=== PATIENT | female | born 1975 | race Caucasian/White ===

== ENCOUNTER 2016-10-18 16:38 | Emergency (ER) | payer OTHER ==
[~2016-10-18] VITALS: Ht 160 cm; Wt 68.1 kg
[~2016-10-18 16:38] MED LIST: ADVIL200 M1 PO; BENADRYL25 MG PO; CARISOPRODOL350 MG; DICYCLOMINE HCL10 MG; DILAUDID4 MG PO; ESGIC 50-325-41 EAC1 PO; EXCEDRIN MIGRA1 EAC3 PO; FENTANYL1 EAC4 TD; KEFLEX500 MG PO; KENALOG,ARISTOC80 GM TP; LEXAPRO5 MG; MEDROL DOSEPAK4 MG PO; METHADONE10 MG PO; MOTRIN800 MG PO; NAPROSYN500 MG; NAPROXEN500 MG PO; NOHOMEMEDS; PREDNISONE20 MG PO; PROMETHAZINE HC25 M1 PO; PROPRANOLOL HCL20 MG PO; PYRIDIUM100 MG PO; TRAMADOL HCL50 MG; TYLENOL WITH C1 EACH PO; XANAX0.25 MG
[2016-10-18 17:06] LABS: HEMATOCRIT 39.8 % (36.0-46.0); MCH 31.7 PG (29.0-34.0); MCHC 35.4 G/DL (30.0-36.0); MCV 89.4 FL (83-99); MEAN PLAT.VOLUME 9.8 uM^3 (9.5-12.4); PLATELET COUNT 302 K/uL (156-360); RBC DIS.WIDTH-SD 38.4 % (39-53); RED BLOOD COUNT 4.45 M/uL (3.80-5.20); WHITE BLOOD COUNT 7.4 K/uL (4.1-10.2)
[2016-10-18 17:17] LABS: CHLORIDE 105 mEq/L (99-109)
[2016-10-18 17:18] LABS: POTASSIUM 3.2 mEq/L (3.7-5.4); SODIUM 140 mEq/L (136-147)
[2016-10-18 17:20] LABS: GLUCOSE 98 mg/dL (70-99)
[2016-10-18 17:21] LABS: ANION GAP 11 MEQ/L (2-14)
[2016-10-18 17:22] LABS: TOTAL BILIRUBIN 0.8 mg/dL (0.0-1.0)
[2016-10-18 17:23] LABS: ALKALINE PHOSPHATASE 55 IU/L (3-129)
[2016-10-18 17:24] LABS: GFR ESTIMATE (CALCULATED) > 59 mL/min/
[2016-10-18 17:25] LABS: DIRECT BILIRUBIN 0.3 mg/dL (0.0-0.3); UREA NITROGEN (BUN) 12 mg/dL (9-23)
[2016-10-18 17:27] LABS: LIPASE 138 U/L (1.0-51.0)
[2016-10-18 18:18] LABS: ADD MIUA? YES; BILIRUBIN NEGATIVE; BLOOD NEGATIVE; COLOR YELLOW ((YELLOW)); GLUCOSE (STRIP) NEGATIVE; KETONES 80; LEUKOCYTES NEGATIVE; NITRITE NEGATIVE; PROTEIN (STRIP) 100; SPECIFIC GRAVITY 1.026 (1.000-1.030); UROBILINOGEN 0.2 MG/DL (0.2-1.0)
[2016-10-18 18:33] LABS: BACTERIA RARE /HPF; EPITHELIAL CELLS 1+ /HPF; MUCUS 2+ /LPF; UCUL ADDED? NO; WHITE BLOOD CELLS 0-5 /HPF (0-5)
[2016-10-18] MEDS ORDERED: ZOFRAN4 MG PO (18:45)
[2016-10-18 19:12] VITALS: BP 101/65
== END 2016-10-18 19:14 | disposition home or self-care (01) ==
LOC: EME 16:38
PROVIDERS: Emergency Medicine
DX: R11.2 Nausea with vomiting, unspecified (principal); R19.7 Diarrhea, unspecified; E86.0 Dehydration; Z87.440 Personal history of urinary (tract) infections
CPT/HCPCS: 80048; 80076; 81003; 83690; 85027; 99281; 99285; J0780; J1200; J1885; J2405; J7030

== ENCOUNTER 2016-10-20 19:20 | Emergency (ER) | payer OTHER ==
[~2016-10-20] VITALS: Ht 160 cm; Wt 63.8 kg
[~2016-10-20 19:20] MED LIST changes: +ZOFRAN4 MG PO
[2016-10-20 20:45] LABS: HEMATOCRIT 36.1 % (36.0-46.0); MCH 31.7 PG (29.0-34.0); MCHC 34.9 G/DL (30.0-36.0); MCV 90.7 FL (83-99); RBC DIS.WIDTH-CV 12.1 % (11.8-14.6); RBC DIS.WIDTH-SD 39.1 % (39-53); RED BLOOD COUNT 3.98 M/uL (3.80-5.20); WHITE BLOOD COUNT 3.8 K/uL (4.1-10.2)
[2016-10-20 21:08] LABS: CHLORIDE 104 mEq/L (99-109); POTASSIUM 3.1 mEq/L (3.7-5.4); SODIUM 141 mEq/L (136-147)
[2016-10-20 21:11] LABS: GLUCOSE 93 mg/dL (70-99)
[2016-10-20 21:12] LABS: ANION GAP 10 MEQ/L (2-14)
[2016-10-20 21:14] LABS: ALKALINE PHOSPHATASE 53 IU/L (3-129)
[2016-10-20 21:15] LABS: GFR ESTIMATE (CALCULATED) > 59 mL/min/
[2016-10-20 21:16] LABS: UREA NITROGEN (BUN) 10 mg/dL (9-23)
[2016-10-20 21:18] LABS: LIPASE 34 U/L (1.0-51.0); TOTAL BILIRUBIN 0.3 mg/dL (0.0-1.0)
[2016-10-20 21:23] LABS: QUANTITATIVE HCG < 4.0 MIU/ML
[2016-10-20 21:50] LABS: INFLUENZA A VIRAL ANTIGEN POSITIVE; INFLUENZA B VIRAL ANTIGEN NEGATIVE
[2016-10-20 22:07] LABS: HEMATOLOGY COMMENT 1 SMEAR COMPATIBLE; MEAN PLAT.VOLUME 10.4 uM^3 (9.5-12.4)
[2016-10-20 22:08] LABS: PLATELET COUNT 189 K/uL (156-360)
[2016-10-20] MEDS ORDERED: TESSALON PERLE100 MG PO (22:20)
[2016-10-20 22:40] VITALS: BP 138/81
== END 2016-10-20 22:41 | disposition home or self-care (01) ==
LOC: EME 19:20
PROVIDERS: Physician Assistant Medical
DX: J10.1 Influenza due to other identified influenza virus with other respiratory manifestations (principal); Z87.440 Personal history of urinary (tract) infections
CPT/HCPCS: 71020; 80053; 83690; 84702; 85027; 87502; 94640; 99281; 99285; J1885; J2405; J7030

== ENCOUNTER 2017-04-16 18:57 | Emergency (ER) | payer OTHER ==
[~2017-04-16] VITALS: Ht 160 cm; Wt 67.0 kg
[~2017-04-16 18:57] MED LIST changes: +TESSALON PERLE100 MG PO
[2017-04-16] MEDS ORDERED: NAPROXEN500 MG PO (19:50)
[2017-04-16 20:12] VITALS: BP 132/82
== END 2017-04-16 20:13 | disposition home or self-care (01) ==
LOC: EME 18:57
DX: M76.61 Achilles tendinitis, right leg (principal); G89.29 Other chronic pain; M25.571 Pain in right ankle and joints of right foot
CPT/HCPCS: 73610; 99281; 99284